=== PATIENT | female | born 1955 | race Caucasian/White ===

== ENCOUNTER 2019-02-27 05:48 | Inpatient (IN) | payer SELFPAY ==
[~2019-02-27 05:48] MED LIST: Buffered Lidocaine 1% SYRIN* 1 ML/SYRINGE INTRADERM ONE
[2019-02-27] MEDS ORDERED: Lactated Ringers 1000 ML Bag* 1,000 ML IV SCH (06:00)
[2019-02-27] MEDS ORDERED: Scopolamine 1.5 mg* PATCH ONE (06:39)
[2019-02-27] MEDS ORDERED: ceFAZolin 2 GM in NS PREMIX(*) 2 GM/100 ML BAG IVPB ONE (06:39)
[2019-02-27] MEDS ORDERED: Heparin VIAL(*) 5000 UNITS/ML VIAL (FIVE THOUSAND) ONE (06:39)
[2019-02-27] MEDS ORDERED: Dexamethasone IV* 4 MG/ML 1 ML (4 MG) ONE (06:39)
[2019-02-27] MEDS ORDERED: Ondansetron INJ* 2 MG/ML VIAL ONE (06:39)
[2019-02-27] MEDS ORDERED: Buffered Lidocaine 1% SYRIN* 1 ML/SYRINGE INTRADERM ONE (06:39)
[2019-02-27] MEDS ORDERED: Methylene Blue 0.5 %* 50 MG/10 ML AMP IV ONE (07:19)
[2019-02-27] MEDS ORDERED: Propofol* 10 MG/ML 20 ML BTL ONE (07:26)
[2019-02-27] MEDS ORDERED: Midazolam* 1 MG/ML 2 ML VIAL (2 MG) ONE (07:26)
[2019-02-27] MEDS ORDERED: fentaNYL* 50 MCG/ML 2 ML VIAL (100 MCG VIAL) ONE ×5 (07:26→11:33)
[2019-02-27] MEDS ORDERED: Rocuronium* 10 MG/ML VIAL ONE (07:27)
[2019-02-27] MEDS ORDERED: Lidocaine 2% PF * 5 ML VIAL ONE (07:27)
[2019-02-27] MEDS ORDERED: KETAMINE HCL* 50 MG/ML 10 ML VIAL ONE (07:37)
[2019-02-27] MEDS ORDERED: Lidocaine 1% w EPI 1:100,000* MDV 20 ML VIAL ONE (07:44)
[2019-02-27] MEDS ORDERED: Bupivacaine 0.25% SDV PF* 10 ML VIAL INJ ONE (07:44)
[2019-02-27] MEDS ORDERED: Povidone Iodine 5% OPTH* 30 ML BTL ONE (08:14)
[2019-02-27] MEDS ORDERED: Acetaminophen IV 1GM/100ML * 1,000 MG/100 ML VIAL IVPB ONE (09:03)
[2019-02-27] MEDS ORDERED: Naloxone* 0.4 MG/ML 1 ML VIAL IV PRN (09:03)
[2019-02-27] MEDS ORDERED: DiMENhydriNATE IV* 50 MG/ML VIAL IV PUSH PRN (09:03)
[2019-02-27] MEDS ORDERED: Ketorolac INJ* 30 MG/ML 1 ML VIAL ONE (10:13)
[2019-02-27] MEDS ORDERED: Glycopyrrolate IV* 0.2 MG/ML 1 ML VIAL ONE (10:20)
[2019-02-27] MEDS ORDERED: Neostigmine Methylsulfate* 3 MG/3 ML SYRINGE ONE (10:21)
[2019-02-27] MEDS ORDERED: Ondansetron INJ* 2 MG/ML VIAL IV PRN (10:53)
[2019-02-27] MEDS ORDERED: diPHENhydraMINE PO* 25 MG PO PRN (10:53)
[2019-02-27] MEDS ORDERED: HYDROcodone/ACETAMIN 5-325 MG* 1 TAB PO PRN (10:53)
[2019-02-27] MEDS ORDERED: Al Hydrox/Mg Hydrox/Simet LIQ* 30 ML UDC PO PRN (10:53)
[2019-02-27] MEDS ORDERED: Magnesium Hydroxide LIQ* 30 ML UDC PO PRN (10:53)
[2019-02-27] MEDS ORDERED: Acetaminophen TAB* 325 MG PO PRN (10:53)
[2019-02-27] MEDS ORDERED: NS 0.9% 1000 ML** 1,000 ML IV SCH (11:00)
[2019-02-27] MEDS: fentaNYL* 50 MCG/ML 2 ML VIAL (100 MCG VIAL) IV PRN ×5 (11:02→11:35)
[2019-02-27] MEDS ORDERED: Acetaminophen IV 1GM/100ML * 100 ML ONE (11:03)
[2019-02-27] MEDS ORDERED: HYDROmorphone INJ* 0.5 MG/0.5 ML SYRINGE IV SLOW PU PRN (11:05)
[2019-02-27] MEDS ORDERED: HYDROmorphone INJ1* 1 MG/ML SYRINGE ONE (11:20)
[2019-02-27] MEDS ORDERED: DiMENhydriNATE IV* 50 MG/ML VIAL ONE (12:00)
[2019-02-27] MEDS: HYDROcodone/ACETAMIN 5-325 MG* 1 TAB PO PRN (12:53)
[2019-02-27] MEDS ORDERED: HYDROcodone/ACETAMIN 5-325 MG* 1 TAB ONE (12:53)
[2019-02-27] MEDS: Heparin VIAL(*) 5000 UNITS/ML VIAL (FIVE THOUSAND) SUBCUT SCH ×2 (14:58→22:07)
[2019-02-27] MEDS: HYDROmorphone INJ* 0.5 MG/0.5 ML SYRINGE IV PRN ×2 (14:58→20:38)
[2019-02-27] MEDS: Docusate CAP* 100 MG PO SCH (20:35)
[2019-02-28] MEDS: Heparin VIAL(*) 5000 UNITS/ML VIAL (FIVE THOUSAND) SUBCUT SCH (05:43)
[2019-02-28 07:45] VITALS: BP 112/55
[2019-02-28] MEDS: HYDROcodone/ACETAMIN 5-325 MG* 1 TAB PO PRN (07:50)
--- NOTE | 2019-02-28 08:23 | PN ---
Progress Note - Progress Note Date of Service: 02/28/19 SOAP: Subjective:Discharge Note Feeling well. Ambulating well Wants to go home Objective: Alert, NAD Afebrile, VSS Abdomen soft, flat, VAC Prevena in place ARIS's moderate serosanguinous Assessment: Doing well POD#1 Plan: Discharge with ARIS's and VAC Prevena in place Follow up in my office in 5 days Instructions given
[2019-02-28] MEDS ORDERED: SUMAtriptan TAB* 50 MG PO PRN (08:27)
[2019-02-28] MEDS: Docusate CAP* 100 MG PO SCH (09:21)
[2019-02-28] MEDS ORDERED: Ascorbic Acid TAB* 500 MG PO SCH (18:00)
[2019-02-28] MEDS ORDERED: Ferrous Sulfate TAB* 325 MG PO SCH (18:00)
--- NOTE | 2019-03-07 21:12 | DS ---
DISCHARGE SUMMARY: DATE OF ADMISSION: 02/27/19 DATE OF DISCHARGE: 02/28/19 PRINCIPAL DIAGNOSIS: Cosmetic surgery. PROCEDURE: Abdominoplasty, date 02/27/19. SUMMARY: The patient is a 63-year-old woman who complained of loose skin and bulging in her lower abdomen. She was taken to the operating room on 02/27/19, underwent a full abdominoplasty under general anesthesia. She tolerated the surgery well and had uncomplicated postoperative convalescent course in the hospital. By the morning of post-operative day 1, she was feeling well, ambulating well, and wanted to go home. On examination, she was noted to be alert, in no acute distress. She was afebrile with stable vital signs. Her abdomen was noted to be flat and soft. She was discharged home with VAC Prevena and Robert-Sanchez drains in place with arrangements made for followup in my office in 5 days. Instructions were given. [id number] #: [id number] MTDD
== END 2019-02-28 11:15 | disposition home or self-care (01) | DRG 572 ==
LOC: AA 05:48 → EDSTATUS 07:30 → SSU 10:53
PROVIDERS: ADMIT Plastic Surgery; ATTEND Plastic Surgery
PROC: 0JB80ZZ Excision of Abdomen Subcutaneous Tissue and Fascia, Open Approach (ICD-10-PCS; principal; 2019-02-27 07:30)
DX: Z41.1 Encounter for cosmetic surgery (principal); E65 Localized adiposity; M19.90 Unspecified osteoarthritis, unspecified site; G25.81 Restless legs syndrome; G43.909 Migraine, unspecified, not intractable, without status migrainosus; Z82.49 Family history of ischemic heart disease and other diseases of the circulatory system
CPT/HCPCS: 88300; A9270-GY; A9272-GY; J0690; J1100; J1170; J1240; J1644; J1885; J2250; J2405; J2704; J2710; J3010; J3490